=== PATIENT | female | born 1960 | race Caucasian/White ===

== ENCOUNTER 2025-08-03 12:55 | Outpatient (AMB) | payer OTHER, SELFPAY ==
--- OUTSIDE RECORDS SUMMARY | 2024-09-17 06:40 | XMS_ITS ---
Author Organization [facility] Address [address] [facility] [address] [place] [address] Care Team Providers Care Private Advisor Name Role Phone BRUCE Stafford, RA Primary Care Pr Ankita Pond [phone] REASON FOR VISIT Annual FLAGMAN Physical Encounters Encounter Location Date Provider Diagnosis [facility] [address] [place] [address] 09/17/2024 Ankita Ariza Plan Of Treatment Next Appt Details Provider Name:Ankitatyrone sanchezmelyssa, 12/09/2025 01:20:00 PM, [address] [place] [address], [facility] [address], [place], [address], Progress Notes * TRINI KENNEYDOB:1960 ( 64 yo F)Acc No.[id number]:09/17/2024 PROGRESS NOTES Patient: TRINI CURRY Appointment Provider: Padmini Ariza M.D. :1960 A ge:63 Y S ex:Female Date:09/17/2024 Address:[address] [place] [address] Pcp:RA ANTOINE M.D. Subjective: * Chief Complaints: * 1 . Annual FLAGMAN Physical. * Medical History: Objective: * Vitals: Assessment: Plan: * Treatment: * Images: Billing Information: * Visit Code: * Procedure Codes: * Electronic signature of Joby Ariza MD on 08/03/2025 at 03:21 PM EDT Sign off status: Pending * Appointment Provider: Padmini Ariza M.D. Date: 1 11/17/2023 Generated for Shani andrews/Irvin/Imani on: 0 08/03/2025 03:21 PM EDT
--- OUTSIDE RECORDS SUMMARY | 2025-08-01 07:16 | XMS_ITS ---
Author Organization [facility] [employer] Address [address] [place] [address] Care Team Providers Care Maintenance Helper Utility Engineer Name Role Phone RA BARRERA M.D. Primary Care Pr ovider Adalid Ankita Ariza Unavailable [phone] REASON FOR VISIT LAB REQUEST Encounters Encounter Location Date Provider Diagnosis [facility] [employer] [facility] [address] [place] [address] 08/01/2025 Ankita Ariza Menopausal and female climacteric states N95.1 Assessments Encounter Date Diagnosis (ICD Code) Assessment Notes Treatment Notes Treatment Clinical Notes Section Notes 08/01/2025 Menopausal and female climacteric states (ICD-10 - N95.1) Plan Of Treatment Pending Test Test Name Order Date Testosterone-[id number] 08/01/2025 Estradiol-[id number] 08/01/2025 Testosterone Free, Profile I-[id number] 07/12 Next Appt Details Provider Name:Ankita lopez, 12/09/2025 01:20:00 PM, [address] [facility] [place], [address], [place], [address], Progress Notes * ANASTASIASHAGGY RAYGOZANIMESHDOB:1960 ( 64 yo F)Acc No.[id number]:08/01/2025 Patient: TRINI CURRY :1960 A ge:64 Y S ex:Female Address:[address] [place] [address], [address] Subjective: * Chief Complaints: * L AB REQUEST * Medical History: * Surgical History: * Hospitalization/Major Diagno stic Procedure: * Medications: Objective: * Vitals: * Physical Examination: Assessment: * Assessment: 1. M enopausal and female climacteric states - N95.1 Plan: * Treatment: * Procedure Codes: * true * Date: Generated for Shani andrews/Irvin/Imani on: 0 08/03/2025 03:21 PM EDT
[2025-08-03 13:09] VITALS: BP 110/62; PULSE 40; RESP 14; TEMP 36.7; O2SAT 97; BMI 28.8
--- NOTE | 2025-08-03 13:09 | MHC.PC.OV ---
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 Intake Note: New patient visit Allergies Penicillins Allergy (Unknown, Verified 08/03/25 13:24) Unknown Medication List - Last Reconciled 08/03/25 by Danelle Roa PA-C metoprolol tartrate 25 mg PO BID Tobacco use date assessed: 08/03/25 Fall risk assessment: No Falls in past year Last assessed Fall Risk: 08/03/25 Dental Screening Dental Screen Date: 08/03/25 Did you have a dental visit in the last 12 months?: Yes Did you have a dental problem in the last 6 months where you did not have access to dental care?: No Was dental information given to patient?: Patient has dentist HPI 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 She is transferring from [place]. CV: She was at her OBGYN and was noted to have an irregular heartbeat on auscultation and was instructed to follow up with her PCP and a student counsellor. She did go to 1 PCP appointment and they did an EKG and told her that she needed to see Cardiology urgently. She did follow with Dr. Martinez and had an echo and Holter. She is completely asymptomatic in regards to the abnormal heartbeat. She denies ever having any palpitations, dizziness or chest pain. She does have a significant family history of heart disease with her mother. She states that she does not really know the results of the Holter but someone called her from the office and told her to start metoprolol 25 mg twice a day. Her blood pressure today in the office is 110/62 in her heart rate is in the 40s when she 1st presented. It did go up to around the 60-70 range. We did do an EKG today in the office which showed frequent PVCs with bigeminy at a normal sinus rhythm at a rate of 82 beats per minute. Psych: she is having issues with insomnia. She states it has been the last 5 months. She is following with her egg factory worker who discussed possibly starting hormone replacement for her. Mammo: UTD, [facility] Residential Case Manager: [facility] Bone density: Overdue PFSH Surgical History (Updated 08/03/25 @ 13:20 by Cherelle Pollock CMA) H/O colonoscopy H/O hernia repair Family History (Updated 08/03/25 @ 13:27 by Cherelle Pollock CMA) Mother Heart attack HTN (hypertension) High cholesterol Cardiovascular disease Father Prostate cancer Maternal Grandfather Stomach cancer Paternal Grandmother Breast cancer Family/Other MDS (myelodysplastic syndrome) Maternal Grandmother HTN (hypertension) Diabetes Cardiovascular disease Other FH: mental illness Substance abuse Social History Housing: House Patient Tobacco Use Status: Never used Tobacco e-Cigarette/Vaping Use: Never Used Second Hand Smoke Exposure: Yes (past growing up) service: No Current occupational status: employed 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 1. Little interest or pleasure in doing things: not at all 2. Feeling down, depressed, or hopeless: not at all 3. Trouble falling or staying asleep, or sleeping too much: more than half the days 4. Feeling tired or having little energy: not at all 5. Poor appetite or overeating: not at all 6. Feeling bad about yourself - or that you are a failure or have let yourself or your family down: not at all 7. Trouble concentrating on things, such as reading the newspaper or watching television: not at all 8. Moving or speaking so slowly that other people could have noticed. Or the opposite - being so fidgety or restless that you have been moving around a lot more than usual: not at all 9. Thoughts that you would be better off or of hurting yourself in some way: not at all Total score: 2 Depression Screening Interpretation: Negative Depression Screening Done: Yes 62410 - PHQ-9 Billing: Yes Source: Developed by Drs. Jerome Haile, Dorothy Martinez, Rahat Patel and colleagues, with an educational feliberto from [employer]. Thrive Questionnaire Date Thrive assessed: 08/03/25 I am a: Patient What is your living situation today?: I have a steady place to live Within the past 12 months, did the food you bought not last and you didn't have the money to get more?: Never true Within the past 12 months, did you worry whether your food would run out before you got money to buy more?: Never true Do you have trouble paying for medicines?: No Do you have trouble getting transportation to medical appointments?: No Do you have trouble paying your heating and electricity bill?: No Do you have trouble taking care of your child, family member or friend?: No Do you have trouble with day-to-day activities such as bathing, preparing meals, shopping, managing finances, etc.?: No Are you currently unemployed and looking for a job?: No Are you interested in more education?: No Please select the resources that you would like help with: None Currently or been in a relationship where the following occur: No concerns reported THRIVE Score: 0 AUDIT C Alcohol Use Questionnaire (AUDIT-C) 1. How often do you have a drink containing alcohol?: Monthly or less 2. How many drinks containing alcohol do you have on a typical day when you are drinking?: 1 or 2 3. How often do you have six or more drinks on one occasion?: Never Total Score: 1 MOOSE-7 AMB Questionnaire MOOSE-7 Date MOOSE - 7 assessed: 08/03/25 Feeling nervous, anxious, or on edge: 0 = Not at all Not being able to stop or control worryin = Not at all Worrying too much about different things: 0 = Not at all Trouble relaxin = Not at all Being so restless that it is hard to sit still: 0 = Not at all Becoming easily annoyed or irritable: 0 = Not at all Feeling afraid as if something awful might happen: 0 = Not at all Total MOOSE-7 score (0-4 normal; 5-9 mild; 10-14 moderate; 15-21 severe): 0 Source: Developed by Drs. Jerome Haile, Dorothy Martinez, Rahat Patel and colleagues, with an educational feliberto from [employer]. MOOSE-7 Assessment Billing MOOSE-7 Assessment Tool: MOOSE-7 Assessment 10244 Physical exam (Primary Care) Vital Signs: Last Vital Signs Temp 98.1 F 08/03/25 13:09 Pulse 39 L 08/03/25 13:18 Resp 14 08/03/25 13:09 BP 110/62 08/03/25 13:09 Pulse Ox 97 08/03/25 13:09 Oxygen Delivery Method Room Air 08/03/25 13:09 BMI result Body Mass Index 28.8 Tobacco/Smoking Status: Tobacco use Status Tobacco use date assessed 08/03/25 08/03/25 13:25 Patient Tobacco Use Status Never used Tobacco 08/03/25 13:25 e-Cigarette/Vaping Use Never Used 08/03/25 13:25 PHQ-9: PHQ-9 Score PHQ-9: Total score 2 08/03/25 13:25 Depression Screening Interpretation: Negative Thrive Assessment: Date of Thrive Assessment Date Thrive assessed 08/03/25 08/03/25 13:25 Currently or been in a relationship where the following occur: No concerns reported Const Orientation/consciousness: patient oriented x3 HENMT Ears: hearing grossly normal bilaterally Neck Thyroid: Thyroid normal Lymphatic: no lymphadenopathy noted Resp Auscultation: clear to auscultation bilaterally Cardio Rate: regular rate Rhythm: abnormal rhythm with ectopic beats Heart sounds: S1 normal heart sound present and S2 normal heart sound present GI Inspection: Yes normal to inspection Palpation (GI): Soft to palpation and Other GI palpation findings present (nontender, no cva tenderness) Auscultation: normoactive bowel sounds Rectal Exam - Female: deferred Skin General skin exam: no rashes or lesions noted Neuro General: patient oriented x3, gait normal and no focal motor deficits Office Procedures EKG Details: ekg nsr 82 bpm with frequent pvcs. 43577-Axwjjfuonmugcwinj, Complete Coding Level of Care Code New Pt Level 4 (65752) Complex EM visit Add On G2211 Diagnoses Bradycardia R00.1 Asymptomatic PVCs I49.3 Colon polyps K63.5 Dyslipidemia E78.5 CPT Codes EKG - CPT: 99140-Llumtlukcjvvfmdmz, Complete ([id number]) Additional Codes MOOSE-7 Assessment Billing - MOOSE-7 Assessment Tool: MOOSE-7 Assessment 99723 ([id number]) PHQ-9 - 70215 - PHQ-9 Billing: Yes ([id number]) Assessment & Plan Assessment & Plan (1) Bradycardia: Code(s): R00.1 - Bradycardia, unspecified Category: Medical Plan: ekg today reduce metoprolol to 12.5 mg daily (2) Asymptomatic PVCs: Code(s): I49.3 - Ventricular premature depolarization Category: Medical Plan: notes requested from Dr. Martinez advised to follow up with cardiology (3) Colon polyps: Code(s): K63.5 - Polyp of colon Category: Medical Plan: following at [facility] (4) Dyslipidemia: Code(s): E78.5 - Hyperlipidemia, unspecified Category: Medical Plan: has worked on diet, open to statin if needed lipids and lfts ordered Plan bone density ordered Orders: Orders XR DEXA axial skeleton 08/03/25 Z78.0 - Asymptomatic menopausal state Comprehensive [place]. Panel Fast 08/04/25 E78.5 - Hyperlipidemia, unspecified, I49.3 - Ventricular premature depolarization, R00.1 - Bradycardia, unspecified, Z13.6 - Encounter for screening for cardiovascular disorders Lipid Panel 08/04/25 E78.5 - Hyperlipidemia, unspecified, I49.3 - Ventricular premature depolarization, R00.1 - Bradycardia, unspecified, Z13.6 - Encounter for screening for cardiovascular disorders TSH reflex Free T4 08/04/25 E78.5 - Hyperlipidemia, unspecified, I49.3 - Ventricular premature depolarization, R00.1 - Bradycardia, unspecified, Z13.6 - Encounter for screening for cardiovascular disorders Hemoglobin A1c 08/04/25 E78.5 - Hyperlipidemia, unspecified, I49.3 - Ventricular premature depolarization, R00.1 - Bradycardia, unspecified, R73.01 - Impaired fasting glucose, Z13.6 - Encounter for screening for cardiovascular disorders UA CC w/rflx Micro + Cult 08/04/25 E78.5 - Hyperlipidemia, unspecified, I49.3 - Ventricular premature depolarization, R00.1 - Bradycardia, unspecified, R30.0 - Dysuria, Z13.6 - Encounter for screening for cardiovascular disorders AMB EKG-In Office 08/03/25 E78.5 - Hyperlipidemia, unspecified, I49.3 - Ventricular premature depolarization, R00.1 - Bradycardia, unspecified, Z13.6 - Encounter for screening for cardiovascular disorders Complete Blood Count Auto Diff 08/04/25 E78.5 - Hyperlipidemia, unspecified, I49.3 - Ventricular premature depolarization, R00.1 - Bradycardia, unspecified, Z13.6 - Encounter for screening for cardiovascular disorders Microalbumin, Random (w Creat) 08/04/25 E78.5 - Hyperlipidemia, unspecified, I49.3 - Ventricular premature depolarization, R00.1 - Bradycardia, unspecified, Z13.6 - Encounter for screening for cardiovascular disorders RT home sleep study Today I49.3 - Ventricular premature depolarization, R00.1 - Bradycardia, unspecified, R06.81 - Apnea, not elsewhere classified Medications: New metoprolol succinate ER 12.5 mg (1/2 x 25 mg) PO DAILY 45 tabs 0RF 90 days
[2025-08-03 13:18] VITALS: PULSE 39
--- OUTSIDE RECORDS SUMMARY | 2025-08-03 15:21 | XMS_ITS | Patient Health Record ---
Author Organization [employer] [facility] Address [address] [place] [address] Care Team Providers Care Lab Nurse Name Role Phone BRUCE Stafford, RA Primary Care Pr ovider Unavailable Ankita Ariza Unavailable [phone] Allergies Allergen (clinical drug ingredient) Drug/Non Drug Allergy documented on EMR Reaction Allergy Type Onset Date Status magnesium citrate Magnesium Citrate VOmiting/Deh ydra tion Drug Allergy Active Penicillin Rash Drug Allergy Active Results Component Value Reference Range Notes PDF Report Reviewed date:12/07/2024 09:24:14 PM Interpretation: Performing Lab:[facility], [address] Annet[address], [address], [place], Phone - [phone], [facility] Notes/Report: Clinical Information:Vaginal/Cervical, LMP: Men o [id number] Dates / Results....03/18/18 Other..............Post Menopausal No. of containers..01 ThinPrep Vial [id number] IGP No Culture 30 Plus Reviewed date:12/07/2024 09:24:33 PM Interpretation: Performing Lab:[facility] [place], Jo Annette [address], [address], [place], Phone - [phone], [facility] Notes/Report: Clinical Information:Vaginal/Cervical, LMP: Men o [id number] Dates / Results....03/18/18 Other..............Post Menopausal No. of containers..01 ThinPrep Vial DIAGNOSIS: NEGATIVE FOR INTRAEPITHELIAL LESION OR MALIGNANCY. CELLULAR CHANGES ASSOCIATED WITH ATROPHY ARE PRESENT. Specimen adequacy: Satisfactory for evaluation. Endocervical component may not be distinguished in cases of atrophy. Clinician provided ICD10: Z0 1.419 Performed by: Tiffanie Ivy ytotechnologist ([facility]) . . Note: The Pap smear is a screening test designed to aid in the detection of premalignant and malignant conditions of the uterine cervix. It is not a diagnostic procedure and should not be used as the sole means of detecting cervical cancer. Both false-positive and false-negative reports do occur. . Test Methodology: This liquid based ThinPrep(R) pap test was screened with the use of an image guided system. HPV Aptima Negative Negative This nucleic acid amplification test detects fourteen high-risk HPV types (16,18,31,33,35,39,45,51,52,56,58 ,59,66,68) without differentiation. HPV Genotype Reflex Criteria not met, HPV Genotype not performed. Urinalysis Reviewed date:12/03/2024 11:26:43 AM Interpretation: Performing Lab: Notes/Report: PH 8.0 PROTEIN Neg GLUCOSE Neg BLOOD Neg Reason For Referral No Information Medications Medication SIG (Take, Route, Fr equency, Duration) Notes Start Date End Date Status Estradiol 10 MCG 1 tablet Vaginal Thr ee x a week; Duration: 90 days 12/08/2024 Active Tums 500 MG 2 tablets Orally At Night Active Multi-Vitamin - 1 tablet Orally Once a day Active Social History Tobacco Use: Social History Observation Description Date Details (start date - stop date) Never Smoker NA - NA Sexual History Question Answer Notes Had sex in the past 12 months (vaginal, oral, or anal)? No AUDIT-C (Standard) Question Answer Notes Did you have a drink containing alcohol in the p ast year? No Points 0 Interpretation Negative Tobacco Control (Standard) Question Answer Notes Tobacco use: Nonsmoker Problems Problem Type SNOMED Code ICD Code Onset Dates Problem Status W/U Status Risk Notes Problem Menopause (662089338) Menopausal and female climacteric states (N95.1) Active confirmed Problem Postmenopausal atrophic vaginitis (49675747) Postmenopausal atrophic vaginitis (N95.2) Active confirmed Problem Postmenopausal bleeding (03245268) Postmenopausal bleeding (N95.0) Active confirmed Problem Malignant melanoma of skin (46910487) Malignant melanoma of skin, unspecified (C43.9) Active confirmed Problem Cardiac arrhythmia (669548505) Cardiac arrhythmia, unspecified (I49.9) Active confirmed Problem Osteoarthritis (473604111) Unspecified osteoarthritis, unspecified site (M19.90) Active confirmed Problem History of neoplasm (305876211) Personal history of other benign neoplasm (Z86.018) Active confirmed Problem Vitamin D deficiency (43672163) Vitamin D deficiency, unspecified (E55.9) Active confirmed Problem Malignant melanoma of skin (26553059) Melanoma of skin, site unspecified (172.9) Active confirmed Major Problem Inguinal hernia (379871017) Inguinal hernia (550) Active confirmed Major Problem Postmenopausal bleeding (82944874) Postmenopausal bleeding (627.1) Active confirmed Diag Problem Osteoarthritis (657965622) Osteoarthrosis, unspecified whether generalized or localized, unspecified site (715.90) Active confirmed Major Problem Gynecological examination normal (335273141861262) Routine gynecological examination (V72.31) Active confirmed Major Problem Screening for malignant neoplasm of colon (034388175) Special screening for malignant neoplasms, colon (V76.51) Active confirmed Major Vital Signs Temperature 97.7 degrees Fahrenheit 12/03/2024 Blood pressure diastolic 74 mm Hg 12/03/2024 Height 65 in 12/03/2024 Blood pressure systolic 128 mm Hg 12/03/2024 Encounters Encounter Location Date Provider Diagnosis [place] [address] [address] 12/03/2024 Ankita Ariza Encounter for gynecological examination (general) (routine) without abnormal findings Z01.419 ; Encounter for screening mammogram for malignant neoplasm of breast Z12.31 ; Personal history of other benign neoplasm Z86.018 ; Cardiac arrhythmia, unspecified I49.9 and Dense breasts, unspecified R92.30 [place] [address] [address] 12/08/2024 Ankita Ariza [place] [address] [address] 12/20/2024 Ankita Ariza [address] [address] 03/01/2025 Ankita Ariza [facility] [address] [place] [address] 08/01/2025 Ankita Ariza Menopausal and femal e climacteric states N95.1 Assessments Encounter Date Diagnosis (ICD Code) Assessment Notes Treatment Notes Treatment Clinical Notes Section Notes 12/03/2024 Encounter for gynecological examination (general) (routine) without abnormal findings (ICD-10 - Z01.419) PAP TEST WITH HPV TYPING WAS OBTAINED. 08/01/2025 Menopausal and female climacteric states (ICD-10 - N95.1) 12/03/2024 Encounter for screening mammogram for malignant neoplasm of breast (ICD-10 - Z12.31) REGULAR MAMMOGRAMS AND SBE'S WERE RECOMMENDED. 12/03/2024 Personal history of other benign neoplasm (ICD-10 - Z86.018) DISCUSSED PREVIOUS HX OF MUCINOUS CYSTADENOMA AND ITS BENIGN NATURE. 12/03/2024 Cardiac arrhythmia, unspecified (ICD-10 - I49.9) DISCUSSED FINDINGS ON AUSCULTATION AND ITS SIGNIFICANCE. RECOMMENDED SHE SEE HER PCP DARRIUS TO HAVE THIS EVALUATED. SHE IS ASYMPTOMATIC. 12/03/2024 Dense breasts, unspecified (ICD-10 - R92.30) DISCUSSED DENSE BREASTS ON MAMMOGRAM AND ITS IMPLICATIONS. 3D MAMMOGRAMS WERE RECOMMENDED. Plan Of Treatment Pending Test Test Name Order Date Vitamin D, 25-Hydroxy 12/09/2014 MAMMOGRAM, SCREENING 11/30/2014 MAMMOGRAM, SCREENING 12/03/2024 Urinalysis 03/18/2018 THIN PREP,HPV,PAT IF HPV+ (>29YR)(SCRN) 03/18/2018 MM Digital Mammo Screening 01/10/2021 MM Digital Mammo Screening 12/03/2024 MM Digital Mammo Screening 04/03/2022 Screening Bilateral Breast Ultrasound Testosterone-[id number] 08/01/2025 Estradiol-671456 08/01/2025 Testosterone Free, Profile [id number] 07/12 Next Appt Details Provider Name:Ankita lopez, 12/09/2025 01:20:00 PM, [address], [address], [place], [address], Insurance Providers Payer Name Payer Address Payer Phone Subscriber Number Group Number Insured Name Patient Relationship to Insured Coverage Start Date Coverage End Date [facility] [address] [place] , [place] [id number] [phone] [id number] TRINI KENNEY Self - patient is the insured 4 Medical (General) History Medical History History ICD Code Malignant melanoma of skin, unspecified C43.9 Unilateral inguinal hernia, without obstruction or gangrene, not specified as recurrent K40.90 Postmenopausal bleeding N95.0 Unspecified osteoarthritis, unspecified site M19.90 Postmenopausal atrophic vaginitis N95.2 Vitamin D deficiency, unspecified E55.9 Dense breasts, unspecified R92.30 Mammographic heterogeneous density, bila teral breasts R92.333 Zoster with other complications B02.8 Surgical History Surgery Date(Month/Year) Salpingoopherectomy Right Breast Skin Excision - Melanoma Breast Augmentation Left Hernia Colonoscopy Hospitalization History Reason Date(Month/Year) See Surgical Hx
--- OUTSIDE RECORDS SUMMARY | 2025-08-03 15:21 | XMS_ITS | Clinical Summary ---
Author Organization [place] [address] [address] [facility] Address [address] [facility] [address] [facility] [place] [address] Phone Care Team Providers Care Electrical Apprentice Name Role Phone Patt Wyatt MD Primary Care Prov ider Allergies Active Allergy Reactions Criticality Noted Date Comments Magnesium Citrate Nausea And Vomiting Penicillins Rash 12/10/2024 Medications multivitamin tablet Take 1 tablet by mouth 1 (one) time each day. Active calcium carbonate (OS-ALINA) 1250 mg (500 mg elemental calcium) chewable tablet Chew 1 tablet (1,250 mg total) at bedtime. Active calcium citrate-vitamin D (CITRACAL+D) 315 mg-5 mcg (200 unit) per tablet Take 1 tablet by mouth 1 (one) time each day. Active estradioL 10 mcg insert 1 insert Vaginal THRICE A WEEK for 90 days 12/08/2024 Active Active Problems Problem Noted Date Diagnosed Date Heart palpitations Surgical History Surgery Date Site/Laterality Comments HERNIA REPAIR 11/10/2004 - 11/09/2005 Left Left lower abd performed by Dr. Clint Clark SALPINGOOPHORECTOMY 12/11/2013 - 01/07/[address] Madhu Hernandez [facility] [place] [facility] History Medical History Date Comments Colon polyps 03/2017 Palpitations 11/2024 Herpes zoster dermatitis 05/2024 Right s carlin, chest, back, arm, hand and fingers Deviated septum 2015 Dr. Zhong Mononucleosis 1998 Family History Medical History Relation Name Comments Prostate cancer Father Stomach cancer Maternal Grandfather Heart attack Mother Breast cancer Paternal Grandmother Relation Name Status Comments Father Maternal Grandfather Mother Paternal Grandmother Social History Tobacco Use Types Packs/Day Years Used Date Smoking Tobacco: Never Smokeless Tobacco: Never Tobacco Cessation:Counseling Given: Not Answered Alcohol Use Standard Drinks/Week Comments Yes 0 (1 standard drink = 0.6 oz pur e alcohol) rarely Comments No Sex and Gender Information Value Date Recorded Sex Assigned at Not on file Legal Sex Female 11:40 AM EST Gender Identity Not on file Sexual Orientation Not on file Obstetrics History Last Filed Vital Signs Vital Sign Reading Time Taken Comments Blood Pressure 124/67 12/10/2024 9:06 AM EST Pulse 84 12/10/2024 9:06 AM EST Temperature 36.6 C (97.8 F) 12/10/2024 9:06 AM EST Respiratory Rate - - Oxygen Saturation - - Inhaled Oxygen Concentration - - Weight 84.8 kg (187 lb) 12/10/2024 9:06 AM EST Height 165.1 cm (5' 5 ) 12/10/2024 9:06 AM EST Body Mass Index 31.12 12/10/2024 9:06 AM EST Plan of Treatment Health Maintenance Due Date Last Done Comments Breast Cancer Screening 1960 Cervical Cancer Screening: P ap Smear 1981 Pneumococcal Vaccine: 50+ Years (1 of 1 - PCV) 2010 Zoster Vaccines (1 of 2) 2010 Depression Screening 11/10/2024 Colorectal Cancer Screening: Colonoscopy 12/06/2024 HIV Screening 12/06/2024 Hepatitis C Screening 12/06/2024 Social Influencers of Health Screening 12/06/2024 COVID-19 Vaccine (4 - 2024-2 6 season) 2025 11/09/2021, 03/07/2021, 02/14/2021 Influenza Vaccine (#1) 2025 DTaP,Tdap,and Td Vaccines (2 - Td or Tdap) 07/05/2029 07/05/2019 Cholesterol Screening (Lipid Panel) 12/10/2029 12/10/2024 RSV Immunization Adult Patients (1 - 1-dose 75+ series) 2035 HIB Vaccines Aged Out No longer eligi ble based on patient's age to complete this topic HPV Vaccines Aged Out No longer eligi ble based on patient's age to complete this topic Hepatitis A Vaccines Aged Out No long er eligible based on patient's age to complete this topic Hepatitis B Vaccines Aged Out No long er eligible based on patient's age to complete this topic IPV Vaccines Aged Out No longer eligi ble based on patient's age to complete this topic MMR Vaccines Aged Out No longer eligi ble based on patient's age to complete this topic Meningococcal ACWY Vaccine Aged Out N o longer eligible based on patient's age to complete this topic Meningococcal B Vaccine Aged Out No l onger eligible based on patient's age to complete this topic RSV Immunization Patients Under 20 months Aged Out No longer eligible b ased on patient's age to complete this topic Varicella Vaccines Aged Out No longer eligible based on patient's age to complete this topic Procedures Procedure Name Priority Date/Time Associated Diagnosis Comments LIPID PANEL WITH REFLEX TO DIRECT LDL Routine 12/10/2024 10:43 AM EST Arthritis from Last 3 Months or Most Recently Relevant to Health Maintenance Results * (ABNORMAL) Lipid panel with reflex to direct LDL (12/10/2024 10:43 AM EST) Cholesterol 268(H) 0 - 200 mg/dL LAB CHEMISTRY METHOD 12/10/2024 3:35 PM [facility] Triglycerides 135 0 - 150 mg/dL LAB CHEMISTRY METHOD 12/10/2024 3:35 PM [facility] HDL 56 >=40 mg/dL LAB CHEMISTRY METHOD 12/10/2024 3:35 PM [facility] LDL Calculated 185(H) 0 - 100 mg/dL LAB CHEMISTRY METHOD 12/10/2024 3:35 PM [facility] VLDL Cholesterol Alina 27 mg/dL LAB CHEMISTRY METHOD 12/10/2024 3:35 PM [facility] Non HDL Chol. (LDL+VLDL) 212(H) <145 mg/dL LAB CHEMISTRY METHOD 12/10/2024 3:35 PM [facility] Chol/HDL Ratio 4.8(H) 0.0 - 4.4 LAB CHEMISTRY METHOD 12/10/2024 3:35 PM [facility] Blood Venous blood specimen / Unknown Venipuncture / Unknown 12/10/2024 10:43 AM EST 12/10/2024 10:43 AM EST Patt Wyatt MD LAB BLOOD ORDERABL ES Final Result [facility] ([facility]) [facility] [address] [place] [address], from Last 3 Months or Most Recently Relevant to Health Maintenance Insurance [facility] Care Teams Electrical Apprentice Relationship Specialty Start Date End Date Patt Wyatt MD [address] [place] [id number] PCP - General Internal Medicine 12/06/24
== END 2025-08-03 14:33 | disposition home or self-care (01) ==
LOC: HO.HMCFM 12:56
PROVIDERS: PCP Physician Assistant; Visit Provider Physician Assistant
DX: R00.1 Bradycardia, unspecified (principal); I49.3 Ventricular premature depolarization; K63.5 Polyp of colon; E78.5 Hyperlipidemia, unspecified

== ENCOUNTER → 2025-08-03 12:55 | Outpatient (BNVA) | payer OTHER, SELFPAY | PROVIDERS: PCP Physician Assistant; Visit Provider Physician Assistant | DX: Z76.89 Persons encountering health services in other specified circumstances (principal); R00.1 Bradycardia, unspecified; I49.3 Ventricular premature depolarization; E78.5 Hyperlipidemia, unspecified; Z79.899 Other long term (current) drug therapy; Z13.31 Encounter for screening for depression; Z13.39 Encounter for screening examination for other mental health and behavioral disorders | CPT/HCPCS: 93005; 96127 ==

== ENCOUNTER 2025-08-04 09:15 | Outpatient (REF) | payer OTHER, SELFPAY ==
--- OUTSIDE RECORDS SUMMARY | 2024-09-17 06:40 | XMS_ITS ---
Author Organization [facility] [employer] [facility] Address [address] [facility] [address] [place] [address] Care Team Providers Care Meat Grader Name Role Phone BRUCE Stafford, RA Primary Care Pr Ankita Pond [phone] REASON FOR VISIT Annual LEGAL RESEARCH ANALYST Physical Encounters Encounter Location Date Provider Diagnosis [facility] [employer] [address] [place] [address] 09/17/2024 Ankita Ariza Plan Of Treatment Next Appt Details Provider Name:Ankitatyrone sanchezmelyssa, 12/09/2025 01:20:00 PM, [address] [place] [address], [facility] [address], [place], [address], Progress Notes * TRINI KENNEYDOB:1960 ( 64 yo F)Acc No.[id number]:09/17/2024 PROGRESS NOTES Patient: TRINI CURRY Appointment Provider: Padmini Ariza M.D. :1960 A ge:63 Y S ex:Female Date:09/17/2024 Address:[address] [place] [address] Pcp:RA ANTOINE M.D. Subjective: * Chief Complaints: * 1 . Annual LEGAL RESEARCH ANALYST Physical. * Medical History: Objective: * Vitals: Assessment: Plan: * Treatment: * Images: Billing Information: * Visit Code: * Procedure Codes: * Electronic signature of Joby Ariza MD on 08/04/2025 at 10:14 AM EDT Sign off status: Pending * Appointment Provider: Padmini Ariza M.D. Date: 1 11/17/2023 Generated for Shani andrews/Irvin/Imani on: 0 08/04/2025 10:14 AM EDT
--- OUTSIDE RECORDS SUMMARY | 2025-08-01 07:16 | XMS_ITS ---
Author Organization [facility] Address [address] [place] [address] Care Team Providers Care Per Diem Clerk Name Role Phone RA BARRERA M.D. Primary Care Pr ovider Adalid Ankita Ariza Unavailable [phone] REASON FOR VISIT LAB REQUEST Encounters Encounter Location Date Provider Diagnosis [facility] [employer] [facility] [address] [place] [address] 08/01/2025 Ankita Ariza Menopausal and female climacteric states N95.1 Assessments Encounter Date Diagnosis (ICD Code) Assessment Notes Treatment Notes Treatment Clinical Notes Section Notes 08/01/2025 Menopausal and female climacteric states (ICD-10 - N95.1) Plan Of Treatment Pending Test Test Name Order Date [id number] 08/01/2025 Estradiol-[id number] 08/01/2025 Testosterone Free, Profile I-[id number] 07/12 Next Appt Details Provider Name:Ankita lopez, 12/09/2025 01:20:00 PM, [address] [facility], [address], [place], [address], Progress Notes * ANASTASIASHAGGY RAYGOZANIMESHDOB:1960 ( 64 yo F)Acc No.[id number]:08/01/2025 Patient: TRINI CURRY :1960 A ge:64 Y S ex:Female Address:[address] [place] [address], [address] Subjective: * Chief Complaints: * L AB REQUEST * Medical History: * Surgical History: * Hospitalization/Major Diagno stic Procedure: * Medications: Objective: * Vitals: * Physical Examination: Assessment: * Assessment: 1. M enopausal and female climacteric states - N95.1 Plan: * Treatment: * Procedure Codes: * true * Date: Generated for Shani andrews/Irvin/Imani on: 0 08/04/2025 10:14 AM EDT
--- OUTSIDE RECORDS SUMMARY | 2025-08-04 10:15 | XMS_ITS | Clinical Summary ---
Author Organization [place] [address] [address] [facility] Address [address] [facility] [place] [address] Phone Care Team Providers Care Eligibility Consultant Name Role Phone Patt Wyatt MD Primary [...] - 01/07/[address] Madhu Hernandez Cancer [place] Medical History Medical History Date Comments Colon [...] mg/dL LAB CHEMISTRY METHOD 12/10/2024 3:35 PM [facility] Triglycerides 135 0 - 150 mg/dL LAB CHEMISTRY METHOD 12/10/2024 3:35 PM [facility] HDL 56 >=40 mg/dL LAB CHEMISTRY METHOD 12/10/2024 3:35 PM [facility] LDL Calculated 185(H) 0 - 100 mg/dL LAB CHEMISTRY METHOD 12/10/2024 3:35 PM [facility] VLDL Cholesterol Alina 27 mg/dL LAB CHEMISTRY METHOD 12/10/2024 3:35 PM [facility] Non HDL Chol. (LDL+VLDL) 212(H) <145 mg/dL LAB CHEMISTRY METHOD 12/10/2024 3:35 PM [facility] Chol/HDL Ratio 4.8(H) 0.0 - 4.4 LAB CHEMISTRY METHOD 12/10/2024 3:35 PM [facility] Blood Venous blood specimen / Unknown Venipuncture / Unknown 12/10/2024 10:43 AM EST 12/10/2024 10:43 AM EST Patt Wyatt MD LAB BLOOD ORDERABL ES Final Result [facility] ([facility]) [facility] [address] [place] [address], from Last 3 Months or Most Recently Relevant to Health Maintenance Insurance [facility] Care Teams Eligibility Consultant Relationship Specialty Start Date End Date Patt Wyatt MD [address] [place] [id number] PCP - General Internal Medicine 12/06/24
--- OUTSIDE RECORDS SUMMARY | 2025-08-04 10:15 | XMS_ITS | Patient Health Record ---
Author Organization [employer] [facility]3] Address [address] [place] [address] Care Team Providers Care Diabetologist Name Role Phone BRUCE Stafford, RA Primary Care Pr ovider Unavailable Ankita Ariza Unavailable [phone] Allergies Allergen (clinical drug ingredient) Drug/Non Drug Allergy documented on EMR Reaction Allergy Type Onset Date Status magnesium citrate Magnesium Citrate VOmiting/Deh ydra tion Drug Allergy Active Penicillin Rash Drug Allergy Active Results Component Value Reference Range Notes Urinalysis Reviewed date:12/03/2024 11:26:43 AM Interpretation: Performing Lab: Notes/Report: PH 8.0 PROTEIN Neg GLUCOSE Neg BLOOD Neg [id number] IGP No Culture 30 Plus Reviewed date:12/07/2024 09:24:33 PM Interpretation: Performing Lab:[facility], Jo Annette [address], [address], [place], Phone - [phone], Director - [facility] Notes/Report: Clinical Information:Vaginal/Cervical, LMP: Men o [id number] Dates / Results....03/18/18 Other..............Post Menopausal No. of containers..01 ThinPrep Vial DIAGNOSIS: NEGATIVE FOR INTRAEPITHELIAL LESION OR MALIGNANCY. CELLULAR CHANGES ASSOCIATED WITH ATROPHY ARE PRESENT. Specimen adequacy: Satisfactory for evaluation. Endocervical component may not be distinguished in cases of atrophy. Clinician provided ICD10: Z0 1.419 Performed by: Tiffanie Ivy ytotechnologist ([facility]) . . Note: The Pap smear is [...] Criteria not met, HPV Genotype not performed. PDF Report Reviewed date:12/07/2024 09:24:14 PM Interpretation: Performing Lab:[facility], Jo Gutierrez, [address], [place], Phone - [phone], Director - [facility] Notes/Report: Clinical Information:Vaginal/Cervical, LMP: Men o [id number] Dates / Results....03/18/18 Other..............Post Menopausal No. of containers..01 ThinPrep Vial Reason For Referral No Information Medications Medication [...] Status W/U Status Risk Notes Problem Menopause (094227059) Menopausal and female climacteric states (N95.1) Active confirmed Problem Postmenopausal atrophic vaginitis (79223079) Postmenopausal atrophic vaginitis (N95.2) Active confirmed Problem Postmenopausal bleeding (67953144) Postmenopausal bleeding (N95.0) Active confirmed Problem Malignant melanoma of skin (66815119) Malignant melanoma of skin, unspecified (C43.9) Active confirmed Problem Cardiac arrhythmia (068169797) Cardiac arrhythmia, unspecified (I49.9) Active confirmed Problem Osteoarthritis (728489852) Unspecified osteoarthritis, unspecified site (M19.90) Active confirmed Problem History of neoplasm (638848593) Personal history of other benign neoplasm (Z86.018) Active confirmed Problem Vitamin D deficiency (92156352) Vitamin D deficiency, unspecified (E55.9) Active confirmed Problem Malignant melanoma of skin (44520323) Melanoma of skin, site unspecified (172.9) Active confirmed Major Problem Inguinal hernia (738734660) Inguinal hernia (550) Active confirmed Major Problem Postmenopausal bleeding (83434045) Postmenopausal bleeding (627.1) Active confirmed Diag Problem Osteoarthritis (004124335) Osteoarthrosis, unspecified whether generalized or localized, unspecified site (715.90) Active confirmed Major Problem Gynecological examination normal (703632044133870) Routine gynecological examination (V72.31) Active confirmed Major Problem Screening for malignant neoplasm of colon (997371006) Special screening for malignant neoplasms, colon (V76.51) Active confirmed Major Vital Signs Temperature 97.7 degrees Fahrenheit 12/03/2024 Blood pressure diastolic 74 mm Hg 12/03/2024 Height 65 in 12/03/2024 Blood pressure systolic 128 mm Hg 12/03/2024 Encounters Encounter Location Date Provider Diagnosis [place] [address] [address] [address] 12/03/2024 Ankita Ariza Encounter for gynecological examination (general) (routine) without abnormal findings Z01.419 ; Encounter for screening mammogram for malignant neoplasm of breast Z12.31 ; Personal history of other benign neoplasm Z86.018 ; Cardiac arrhythmia, unspecified I49.9 and Dense breasts, unspecified R92.30 [place] [address] [address] [address] 12/08/2024 Ankita Ariza [place] [address] [address] [address] 12/20/2024 Ankita Ariza [address] [address] 03/01/2025 Ankita Ariza [facility] [address] [place] [address] 08/01/2025 Ankita Ariza Menopausal and femal e [...] Mammo Screening 04/03/2022 Screening Bilateral Breast Ultrasound Testosterone-099901 08/01/2025 Estradiol-574148 08/01/2025 Testosterone Free, Profile [id number] 07/12 Next Appt Details Provider Name:Ankita lopez, 12/09/2025 01:20:00 PM, [address], [address], [place], [address], Insurance Providers Payer Name Payer Address Payer Phone Subscriber Number Group Number Insured Name Patient Relationship to Insured Coverage Start Date Coverage End Date [facility] [address] [place] , [place] [id number] [phone] [id number] TRINI KENNEY Self - patient is [...]
[2025-08-04 11:21] LABS: MANUAL DIFF FLAG NO
[2025-08-04 11:29] LABS: Hematocrit 39.1 % (37.0-47.0); Hemoglobin 13.3 g/dl (12.0-16.0); Imm Gran Abs Auto 0.02 X10*3/uL (0.00-0.03); Imm Gran Pct Auto 0.3 % (0.0-0.4); Lymphocytes Absolute Auto 2.1 X10*3/uL (1.2-4.9); Mean Corpuscular HGB Conc 34.0 g/dl (31.0-35.0); Mean Corpuscular Hemoglobin 28.5 pg (27.0-33.0); Mean Corpuscular Volume 83.7 fL (80.0-98.0); NRBC Abs Auto 0.000 X10*3/uL (0.0-0.012); NRBC Pct Auto 0.0 /100WBC (0.0-0.2); Platelet Count 243 X10*3/uL (160-400); Red Blood Count 4.67 X10*6/uL (4.20-5.50); White Blood Count 6.1 X10*3/uL (4.8-10.8)
[2025-08-04 12:38] LABS: Alanine Aminotransferase 44 U/L (0-31); Albumin Level 4.1 g/dL (3.5-5.0); Alkaline Phosphatase 138 U/L (39-117); Anion Gap 10 (12-20); Aspartate Amino Transferase 38 U/L (5-31); Blood Urea Nitrogen 16 mg/dL (9-16); Calcium 9.0 mg/dL (8.4-10.2); Carbon Dioxide 29 mmol/L (22-29); Chloride 107 mmol/L (96-108); Cholesterol 231 mg/dL (<200); Estimated Glomerular Filt Rate > 60; HDL Cholesterol 48 mg/dL (>40); Potassium 4.1 mmol/L (3.3-5.1); Sodium 142 mmol/L (135-145); Total Protein 6.8 g/dL (6.5-8.0); Triglycerides 77 mg/dL (<150)
[2025-08-04 15:35] LABS: Appearance Urine Clear; Glucose Urine UA Negative (Negative); PH 7.5 (5.0-9.0); Specific Gravity - Urine 1.015 (1.005-1.025)
[2025-08-08 19:33] LABS: Testosterone, Free 1.0 pg/mL (0.1-6.4)
[2025-08-19 04:53] LABS: Estradiol Free 0.05 pg/mL; Estradiol, Ultrasensitive 3 pg/mL
== END 2025-08-04 09:16 | disposition home or self-care (01) ==
LOC: HO.WFDLDS 09:15
PROVIDERS: Referring Provider Obstetrics & Gynecology Gynecology; Visit Provider Physician Assistant
DX: Z13.6 Encounter for screening for cardiovascular disorders (principal); I49.3 Ventricular premature depolarization; N95.1 Menopausal and female climacteric states; R00.1 Bradycardia, unspecified; E78.5 Hyperlipidemia, unspecified; R73.01 Impaired fasting glucose; R30.0 Dysuria
CPT/HCPCS: 36415; 80053; 80061; 81003; 82570; 82670; 82681; 83036; 84402; 84403; 84443; 85025

== ENCOUNTER 2025-08-10 09:48 | Outpatient (REF) | payer OTHER, SELFPAY ==
--- OUTSIDE RECORDS SUMMARY | 2024-09-17 06:40 | XMS_ITS ---
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 :1960 A ge:63 Y S ex:Female Date:09/17/2024 Address:[address] [place] [address] Pcp:RA ANTOINE M.D. Subjective: * Chief Complaints: * 1 . Annual CADD TECHNICIAN Physical. * Medical History: Objective: * Vitals: Assessment: Plan: * Treatment: * Images: Billing Information: * Visit Code: * Procedure Codes: * Electronic signature of Joby Ariza MD on 08/10/2025 at 10:44 AM EDT Sign off status: Pending * Appointment Provider: Padmini Ariza M.D. Date: 1 11/17/2023 Generated for Shani andrews/Irvin/Imani on: 10:44 AM EDT
--- OUTSIDE RECORDS SUMMARY | 2025-08-10 10:45 | XMS_ITS | Clinical Summary ---
Author Organization [place] [address] [address] [facility] Building Address [address] [place] [address] Phone Care Team Providers Care Program Support Specialist Name Role Phone Patt Wyatt MD Primary [...] - 01/07/[address] Madhu Hernandez [facility] History Medical History Date Comments Colon [...] Last Done Comments Breast Cancer Screening 1960 Colorectal Cancer Screening: Colonoscopy 1960 Cervical Cancer Screening: P ap Smear 1981 Pneumococcal Vaccine: 50+ Years (1 of 1 - PCV) 2010 Zoster Vaccines (1 of 2) 2010 Depression Screening 11/10/2024 HIV Screening 12/06/2024 Hepatitis C Screening 12/06/2024 [...] mg/dL LAB CHEMISTRY METHOD 12/10/2024 3:35 PM [facility] Triglycerides 135 0 - 150 mg/dL LAB CHEMISTRY METHOD 12/10/2024 3:35 PM [facility] HDL 56 >=40 mg/dL LAB CHEMISTRY METHOD 12/10/2024 3:35 PM [facility] LDL Calculated 185(H) 0 - 100 mg/dL LAB CHEMISTRY METHOD 12/10/2024 3:35 PM [facility] VLDL Cholesterol Alina 27 mg/dL LAB CHEMISTRY METHOD 12/10/2024 3:35 PM [facility] Non HDL Chol. (LDL+VLDL) 212(H) <145 mg/dL LAB CHEMISTRY METHOD 12/10/2024 3:35 PM [facility] Chol/HDL Ratio 4.8(H) 0.0 - 4.4 LAB CHEMISTRY METHOD 12/10/2024 3:35 PM [facility] Blood Venous blood specimen / Unknown Venipuncture / Unknown 12/10/2024 10:43 AM EST 12/10/2024 10:43 AM EST Patt Wyatt MD LAB BLOOD ORDERABL ES Final Result [facility] [address] [place] [address], from Last 3 Months or Most Recently Relevant to Health Maintenance Insurance [facility] Care Teams Program Support Specialist Relationship Specialty Start Date End Date Patt Wyatt MD [address] [place] [id number] PCP - General Internal Medicine 12/06/24
--- OUTSIDE RECORDS SUMMARY | 2025-08-10 10:45 | XMS_ITS | Patient Health Record ---
Author Organization [employer] [facility] Address [address] [place] [address] Care Team Providers Care Enthone Solder Stripper Name Role Phone BRUCE Stafford, RA Primary Care Pr ovider Unavailable Ankita Ariza Unavailable [phone] Allergies Allergen (clinical drug ingredient) Drug/Non Drug Allergy documented on EMR Reaction Allergy Type Onset Date Status Magnesium Citrate VOmiting/Dehyd ra tion Drug Allergy Active Penicillin Rash Drug Allergy Active Results Component Value Reference Range Notes Urinalysis Reviewed date:12/03/2024 11:26:43 AM Interpretation: Performing Lab: Notes/Report: PH 8.0 PROTEIN Neg GLUCOSE Neg BLOOD Neg 186800-Ulb IGP No Culture 30 Plus Reviewed date:12/07/2024 09:24:33 PM Interpretation: Performing Lab:[facility], [address], [address], [place], Phone - [phone], Director - [facility] Notes/Report: Clinical Information:Vaginal/Cervical, LMP: Men o [id number] Dates / Results....03/18/18 Other..............Post Menopausal No. of containers..01 ThinPrep Vial DIAGNOSIS: NEGATIVE FOR INTRAEPITHELIAL LESION OR MALIGNANCY. CELLULAR CHANGES ASSOCIATED WITH ATROPHY ARE PRESENT. Specimen adequacy: Satisfactory for evaluation. Endocervical component may not be distinguished in cases of atrophy. Clinician provided ICD10: Z0 1.419 Performed by: Tiffanie Ivy ytotechnologist ([place]) . . Note: The Pap smear is [...] date:12/07/2024 09:24:14 PM Interpretation: Performing Lab:[facility], [address], [address], [place], Phone - [phone], Director - [facility] Notes/Report: Clinical Information:Vaginal/Cervical, LMP: Men o [id number] Dates / Results....03/18/18 Other..............Post Menopausal No. of [...] Status W/U Status Risk Notes Problem Menopause (747634643) Menopausal and female climacteric states (N95.1) Active confirmed Problem Postmenopausal atrophic vaginitis (28765750) Postmenopausal atrophic vaginitis (N95.2) Active confirmed Problem Postmenopausal bleeding (71058838) Postmenopausal bleeding (N95.0) Active confirmed Problem Malignant melanoma of skin (87185240) Malignant melanoma of skin, unspecified (C43.9) Active confirmed Problem Cardiac arrhythmia (912324370) Cardiac arrhythmia, unspecified (I49.9) Active confirmed Problem Osteoarthritis (825738218) Unspecified osteoarthritis, unspecified site (M19.90) Active confirmed Problem History of neoplasm (593049533) Personal history of other benign neoplasm (Z86.018) Active confirmed Problem Vitamin D deficiency (88741002) Vitamin D deficiency, unspecified (E55.9) Active confirmed Problem Malignant melanoma of skin (05192699) Melanoma of skin, site unspecified (172.9) Active confirmed Major Problem Inguinal hernia (055827481) Inguinal hernia (550) Active confirmed Major Problem Postmenopausal bleeding (80384387) Postmenopausal bleeding (627.1) Active confirmed Diag Problem Osteoarthritis (207856193) Osteoarthrosis, unspecified whether generalized or localized, unspecified site (715.90) Active confirmed Major Problem Gynecological examination normal (916043417064234) Routine gynecological examination (V72.31) Active confirmed Major Problem Screening for malignant neoplasm of colon (788227975) Special screening for malignant neoplasms, colon (V76.51) Active confirmed Major Vital Signs Temperature 97.7 degrees Fahrenheit 12/03/2024 Blood pressure diastolic 74 mm Hg 12/03/2024 Height 65 in 12/03/2024 Blood pressure systolic 128 mm Hg 12/03/2024 Encounters Encounter Location Date Provider Diagnosis [place] [address] [address] [address] [address] 12/03/2024 Ankita Ariza Encounter for gynecological examination (general) (routine) without abnormal findings Z01.419 ; Encounter for screening mammogram for malignant neoplasm of breast Z12.31 ; Personal history of other benign neoplasm Z86.018 ; Cardiac arrhythmia, unspecified I49.9 and Dense breasts, unspecified R92.30 [place] [address] [facility] [address] [place] [address] 12/08/2024 Ankita Ariza [place] [address] [address] [address] [address] 12/20/2024 Ankita Ariza [place] [address] [facility] [address] [place] [address] 03/01/2025 Ankita Ariza [place] [address] [address] [place] [address] 08/01/2025 Ankita Ariza Menopausal and femal e [...] Mammo Screening 04/03/2022 Screening Bilateral Breast Ultrasound Testosterone-[id number] 08/01/2025 Estradiol-[id number] 08/01/2025 Testosterone Free, Profile [id number] 07/12 Next Appt Details Provider Name:Ankita lopez, 12/09/2025 01:20:00 PM, [address], [place], [address], Insurance Providers Payer Name Payer Address Payer Phone Subscriber Number Group Number Insured Name Patient Relationship to Insured Coverage Start Date Coverage End Date [facility] [address] [facility] [id number] TRINI KENNEY Self - patient is the [...]
[2025-08-10 11:50] LABS: Alanine Aminotransferase 24 U/L (0-31); Albumin Level 4.3 g/dL (3.5-5.0); Alkaline Phosphatase 135 U/L (39-117); Aspartate Amino Transferase 20 U/L (5-31); Magnesium 2.2 mg/dL (1.6-2.6); Total Protein 7.1 g/dL (6.5-8.0)
[2025-08-10 12:24] LABS: Parathyroid Hormone Intact 73.5 pg/mL (8.7-77.1)
== END 2025-08-10 09:49 | disposition home or self-care (01) ==
LOC: HO.WFDLDS 09:48
PROVIDERS: Visit Provider Physician Assistant
DX: R74.8 Abnormal levels of other serum enzymes (principal); R79.89 Other specified abnormal findings of blood chemistry; E78.5 Hyperlipidemia, unspecified; I49.3 Ventricular premature depolarization; R00.1 Bradycardia, unspecified
CPT/HCPCS: 36415; 80076; 82306; 83735; 83970

== ENCOUNTER 2025-09-01 12:52 | Outpatient (AMB) | payer OTHER, SELFPAY ==
--- NOTE | 2025-09-01 12:54 | A.OFFPC_ITS ---
Vital Signs 09/01/25 12:58 Height 5 ft 3.15 in Weight 166 lb 6 oz BMI 29.3 BP 110/58 L Blood Pressure Location Rt brachial Position Sitting Respiration 16 Pulse 70 Pulse Source Pulse Oximeter Temp 98.1 F Temp Source Oral Pulse Oximetry (%) 99 Oxygen Delivery Method Room Air Intake Visit Reasons: med check Intake Note: med check Financial Representative Required: No Allergies Penicillins Allergy (Unknown, Verified 09/01/25 12:57) Unknown Medication List - Last Reconciled 09/01/25 by Danelle Roa PA-C metoprolol succinate ER 25 mg PO DAILY 90 days Tobacco use date assessed: 09/01/25 Fall risk assessment: No Falls in past year Last assessed Fall Risk: 09/01/25 Dental Screening Dental Screen Date: 09/01/25 Did you have a dental visit in the last 12 months?: Yes Did you have a dental problem in the last 6 months where you did not have access to dental care?: No Was dental information given to patient?: Patient has dentist HPI med check HPI Details Pt is a 64 year old female who presents today for a follow up. She is relatively new here. fam hx of ddx41 gene mutation. She is going to see if her insurance covers genetic testing. CV: On metoprolol 25 mg daily. Blood pressure today in the office is 110/58. She did try lowering the dose of the metoprolol to 12.5 mg and did feel increased palpitations. GI: Last labs did show elevated LFTs. Labs did improve on repeat test. She is scheduled for ultrasound. Psych: she is having issues with insomnia. She states it has been the last 5 months. She is following with her recordings librarian who discussed possibly starting hormone replacement for her. Mammo: UTD, [facility] Operator: [facility] Bone density: Scheduled REPLACED BY [facility] Surgical History H/O colonoscopy H/O hernia repair Family History Mother Heart attack HTN (hypertension) High cholesterol Cardiovascular disease Father Prostate cancer Maternal Grandfather Stomach cancer Paternal Grandmother Breast cancer Family/Other MDS (myelodysplastic syndrome) Maternal Grandmother HTN (hypertension) Diabetes Cardiovascular disease Other FH: mental illness Substance abuse Social History (Updated 09/01/25 @ 12:58 by Luis Easton MA) Housing: House Alcohol intake: current Comment: once every 6 months Patient Tobacco Use Status: Never used Tobacco e-Cigarette/Vaping Use: Never Used Second Hand Smoke Exposure: Yes (past growing up) service: No Current occupational status: employed 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 [employer] Current occupational exposures/hazards: No Cognitive needs: No Hearing needs: No Vision needs: Yes (contacts) Questionnaire Thrive Questionnaire Date Thrive assessed: 08/03/25 I am a: Patient What is your living situation today?: I have a steady place to live Within the past 12 months, did the food you bought not last and you didn't have the money to get more?: Never true Within the past 12 months, did you worry whether your food would run out before you got money to buy more?: Never true Do you have trouble paying for medicines?: No Do you have trouble getting transportation to medical appointments?: No Do you have trouble paying your heating and electricity bill?: No Do you have trouble taking care of your child, family member or friend?: No Do you have trouble with day-to-day activities such as bathing, preparing meals, shopping, managing finances, etc.?: No Are you currently unemployed and looking for a job?: No Are you interested in more education?: No Please select the resources that you would like help with: None Currently or been in a relationship where the following occur: No concerns reported THRIVE Score: 0 MOOSE-7 AMB Questionnaire MOSOE-7 Date MOOSE - 7 assessed: 09/01/25 Source: Developed by Drs. Jerome Haile, Dorothy Martinez, Rahat Patel and colleagues, with an educational feliberto from [employer]. MOOSE-7 Assessment Billing MOOSE-7 Assessment Tool: MOOSE-7 Assessment 93279 Physical exam (Primary Care) Vital Signs: Last Vital Signs Temp 98.1 F 09/01/25 12:58 Pulse 70 09/01/25 12:58 Resp 16 09/01/25 12:58 BP 110/58 L 09/01/25 12:58 Pulse Ox 99 09/01/25 12:58 Oxygen Delivery Method Room Air 09/01/25 12:58 BMI result Body Mass Index 29.3 Tobacco/Smoking Status: Tobacco use Status Tobacco use date assessed 08/03/25 09/01/25 12:56 Patient Tobacco Use Status Never used Tobacco 09/01/25 12:58 e-Cigarette/Vaping Use Never Used 09/01/25 12:58 Thrive Assessment: Date of Thrive Assessment Date Thrive assessed 08/03/25 09/01/25 12:56 Currently or been in a relationship where the following occur: No concerns reported Const Orientation/consciousness: patient oriented x3 HENMT Ears: hearing grossly normal bilaterally Neck Thyroid: Thyroid normal Lymphatic: no lymphadenopathy noted Resp Auscultation: clear to auscultation bilaterally Cardio Rate: regular rate Rhythm: regular rhythm Heart sounds: S1 normal heart sound present and S2 normal heart sound present GI Inspection: Yes normal to inspection Palpation (GI): Soft to palpation and Other GI palpation findings present (nontender, no cva tenderness) Auscultation: normoactive bowel sounds Rectal Exam - Female: deferred Skin General skin exam: no rashes or lesions noted Neuro General: patient oriented x3, gait normal and no focal motor deficits Results Reviewed Results Reviewed: Laboratory Tests 08/04/25 08/10/25 09:22 09:50 WBC 6.1 RBC 4.67 Hgb 13.3 Hct 39.1 Plt Count 243 Sodium 142 Potassium 4.1 Chloride 107 Carbon Dioxide 29 Anion Gap 10 L BUN 16 Creatinine 0.79 Estimated GFR > 60 Fasting Glucose 102 H Hemoglobin A1c % 5.4 Calcium 9.0 AST 20 ALT 24 Alkaline Phosphatase 135 H Triglycerides 77 Cholesterol 231 H LDL Cholesterol, Calc 168 H HDL Cholesterol 48 25-OH Vitamin D Total 51.0 TSH 2.81 PTH Intact 73.5 Coding Level of Care Code Est Pt Level 4 (50507) Complex EM visit Add On G2211 Diagnoses Dyslipidemia E78.5 Elevated LFTs R79.89 Asymptomatic PVCs I49.3 Additional Codes MOOSE-7 Assessment Billing - MOOSE-7 Assessment Tool: MOOSE-7 Assessment 85201 ([id number]) Assessment & Plan Assessment & Plan (1) Dyslipidemia: Code(s): E78.5 - Hyperlipidemia, unspecified Category: Medical Plan: Working on diet changes. We will recheck lipids. (2) Elevated LFTs: Code(s): R79.89 - Other specified abnormal findings of blood chemistry Category: Medical Plan: We will monitor and rechecked. LFTs ordered to be completed in a few months. Ultrasound pending. (3) Asymptomatic PVCs: Code(s): I49.3 - Ventricular premature depolarization Category: Medical Plan: Asymptomatic with metoprolol. Following with Cardiology at [facility]. Orders: Orders Comprehensive Morning Sun. Panel Fast Today E78.5 - Hyperlipidemia, unspecified, I49.3 - Ventricular premature depolarization, R79.89 - Other specified abnormal findings of blood chemistry Hemoglobin A1c Today E78.5 - Hyperlipidemia, unspecified, I49.3 - Ventricular premature depolarization, R73.01 - Impaired fasting glucose, R79.89 - Other specified abnormal findings of blood chemistry Complete Blood Count Auto Diff Today E78.5 - Hyperlipidemia, unspecified, I49.3 - Ventricular premature depolarization, R79.89 - Other specified abnormal findings of blood chemistry Lipid Panel Today E78.5 - Hyperlipidemia, unspecified, I49.3 - Ventricular premature depolarization, R79.89 - Other specified abnormal findings of blood chemistry Medications: Changed From metoprolol succinate ER 12.5 mg (1/2 x 25 mg) PO DAILY 90 days 45 tabs 0RF To metoprolol succinate ER 25 mg PO DAILY 90 tabs 0RF 90 days
[2025-09-01 12:58] VITALS: BP 110/58; PULSE 70; RESP 16; TEMP 36.7; O2SAT 99; BMI 29.3
--- OUTSIDE RECORDS SUMMARY | 2025-09-01 16:03 | XMS_ITS | Clinical Summary ---
Author Organization [place] [address] [address] [facility] Address [address] [place] [address] Phone Care Team Providers Care Spinning And Winding Supervisor Name Role Phone Ptat Wyatt MD Primary Care Prov ider Allergies [...] - 01/07/[address] Madhu Hernandez [facility] [place] Medical History Medical History Date Comments Colon [...] mg/dL LAB CHEMISTRY METHOD 12/10/2024 3:35 PM [facility] Triglycerides 135 0 - 150 mg/dL LAB CHEMISTRY METHOD 12/10/2024 3:35 PM [facility] HDL 56 >=40 mg/dL LAB CHEMISTRY METHOD 12/10/2024 3:35 PM [facility] LDL Calculated 185(H) 0 - 100 mg/dL LAB CHEMISTRY METHOD 12/10/2024 3:35 PM [facility] VLDL Cholesterol Alina 27 mg/dL LAB CHEMISTRY METHOD 12/10/2024 3:35 PM [facility] Non HDL Chol. (LDL+VLDL) 212(H) <145 mg/dL LAB CHEMISTRY METHOD 12/10/2024 3:35 PM [facility] Chol/HDL Ratio 4.8(H) 0.0 - 4.4 LAB CHEMISTRY METHOD 12/10/2024 3:35 PM [facility] Blood Venous blood specimen / Unknown Venipuncture / Unknown 12/10/2024 10:43 AM EST 12/10/2024 10:43 AM EST Patt Wyatt MD LAB BLOOD ORDERABL ES Final Result [facility] [address] [place] [address], from Last 3 Months or Most Recently Relevant to Health Maintenance Insurance [facility] Care Teams Spinning And Winding Supervisor Relationship Specialty Start Date End Date Patt Wyatt MD [address] [place] [id number] PCP - General Internal Medicine 12/06/24
== END 2025-09-01 13:26 | disposition home or self-care (01) ==
LOC: HO.HMCFM 12:53
PROVIDERS: PCP Physician Assistant; Visit Provider Physician Assistant
DX: E78.5 Hyperlipidemia, unspecified (principal); R79.89 Other specified abnormal findings of blood chemistry; I49.3 Ventricular premature depolarization

== ENCOUNTER → 2025-09-01 12:52 | Outpatient (BNVA) | payer OTHER, SELFPAY | PROVIDERS: PCP Physician Assistant; Visit Provider Physician Assistant | DX: I49.3 Ventricular premature depolarization (principal); E78.5 Hyperlipidemia, unspecified; R79.89 Other specified abnormal findings of blood chemistry | CPT/HCPCS: 96127 ==